=== PATIENT | male | born 1975 | race Two or more races ===

== ENCOUNTER 2024-06-29 21:18 | Emergency (ER) | payer BC, SELFPAY ==
[2024-06-29 21:21] VITALS: BMI 34.2
--- NOTE | 2024-06-29 21:22 | EKG_ITS ---
[facility] Test Date: 2024-06-29 Pat Name: JACK CRUZ Department: Room: - Gender: Male [employer]: : 1975 Requested By: Escobar Anaya Order Number: [id number] Reading MD: Escobar Anaya Measurements Intervals [place] Rate: 73 P: 28 SD: 203 QRS: 48 QRSD: 118 T: 59 QT: 373 QTc: 411 Interpretive Statements SINUS RHYTHM MODERATE INTRAVENTRICULAR CONDUCTION DELAY [110+ ms QRS DURATION] No previous ECG available for comparison /store/S0/[id number].pdf
[2024-06-29 21:29] VITALS: BP 124/80; PULSE 76; RESP 18; TEMP 36.6; O2SAT 98
[2024-06-29] MEDS: LIDOCAINE VISCOUS 2% 15 ML UDC PO (22:01)
[2024-06-29] MEDS: FAMOTIDINE 20 MG TABLET 40 MG PO (22:01)
[2024-06-29] MEDS: MG HYD/AL HYD/SIME (Maalox Reg) SUSP 30 ML UDC PO (22:01)
--- NOTE | 2024-06-29 22:16 | PD.EDCHEST ---
ED Chest Pain RME/HPI General Chief Complaint: Chest Pain Stated Complaint: CHEST PAIN Time Seen by Provider: 06/29/24 21:45 Arrival date/time: 06/29/24 21:18 48M with no significant PMH presents to ED with 1 month of intermittent burning CP, especially when he eats. Patient recently finished treatment for H. pylori, but still feels like he has symptoms. Patient states it's bad today. Limitations: no limitations Related Data Allergies Allergy/AdvReac Type Severity Reaction Status Date / Time No Known Allergies Allergy Verified 06/29/24 21:19 Review of Systems Review of Systems Systems Reviewed: All systems reviewed, normal except as documented Constitutional Constitutional: Reports system reviewed and no additional complaints, except as documented, Denies fever(s) and Denies headache(s) ENT Ears, Nose, Mouth, and Throat: Denies disequilibrium and Denies headache(s) Cardiovascular Cardiovascular: Reports system reviewed and no additional complaints, except as documented, Reports as per HPI, Reports chest pain and Denies dyspnea Respiratory Respiratory: Reports system reviewed and no additional complaints, except as documented, Denies cough and Denies dyspnea Gastrointestinal Gastrointestinal: Reports system reviewed and no additional complaints, except as documented, Denies abdominal pain, Denies nausea and Denies vomiting Neurologic Neurologic: Reports system reviewed and no additional complaints, except as documented, Denies confusion, Denies disequilibrium and Denies headache(s) Psychiatric Psychiatric: Denies confusion Past Medical History Social History SMOKING STATUS: Never smoker ED Exam General Limitations: Present no limitations General appearance: Present alert and in no apparent distress Head Head exam: Present atraumatic Eye Eye exam: Present normal appearance, PERRL and EOMI ENT ENT exam: Present normal exam, normal oropharynx and mucous membranes moist Neck Neck exam: Present normal inspection, full ROM and trachea midline Chest Chest inspection: Present normal inspection and symmetric chest wall rise Respiratory Respiratory exam: Present normal lung sounds bilaterally Cardiovascular Cardiovascular exam: Present regular rate, normal rhythm and normal heart sounds Abdominal Exam Abdominal exam: Present soft and normal bowel sounds Extremities Exam Extremities exam: Present normal inspection and full ROM Back Exam Back exam: Present normal inspection and full ROM Neurological Exam Neurological exam: Present alert, oriented X3 and CN II-XII intact Psychiatric Psychiatric exam: Present normal affect and normal mood Skin Skin exam: Present warm, dry, intact and normal color Course Quality Measures none Orders Category Date Time Status EKG (ED ONLY) *Do not use* NOW Care 06/29/24 21:22 Completed EKG (ED Only) Stat Exams 06/29/24 21:22 Draft Famotidine [Pepcid] Med 06/29/24 21:46 Discontinued 40 mg PO X1 ONE Lidocaine 2% Viscous [Xylocaine 2% Viscous] Med 06/29/24 21:46 Discontinued 15 ml PO X1 ONE Pantoprazole [Protonix] Med 06/29/24 23:32 Discontinued 40 mg PO X1 ONE mg Hyd/Al Hyd/Olivia Susp [Maalox Susp] Med 06/29/24 21:46 Discontinued 30 ml PO X1 ONE Vital Signs Vital signs: Vital Signs Temperature 97.9 F 06/29/24 21:29 Pulse Rate 76 06/29/24 21:29 Respiratory Rate 18 06/29/24 21:29 Blood Pressure 124/80 06/29/24 21:29 Pulse Oximetry (%) 98 06/29/24 21:29 Oxygen Delivery Method Room Air 06/29/24 21:29 O2 at 98% on RA and WNLs Chest Pain MDM Narrative MDM Narrative:: 48M with no significant PMH presents to ED with 1 month of intermittent burning CP, especially when he eats. Patient recently finished treatment for H. pylori, but still feels like he has symptoms. Patient states it's bad today. Physical exam reveals clear ENT and lungs. RRR. No ab tenderness. Patient is afebrile, calm, and alert. EKG is NSR. GI cocktail improved symptoms. [employer] given. Patient data External records reviewed:: None Clinical information provided by:: patient Social determinants that could affect healthcare access:: none Patient has the following chronic illnesses:: none How is presenting disease/condition affected by chronic disease/condition?: no chronic disease Evaluation data The following diagnostics were reviewed and interpreted by me:: EKG tracing(s) Lab and/or radiology exams considered but not ordered:: ordered Interpretation Summary: above Medications / Prescriptions Medications or Prescriptions considered but not ordered:: ordered Medication administrations:: Medication Administration History Discontinued Medications Al Hydrox/Mg Hydrox/Simethicone (Mg Hyd/Al Hyd/Olivia (Maalox Reg) Susp 30 Ml Udc) 30 ml PO X1 ONE Stop: 06/29/24 21:47 Last Admin: 06/29/24 22:01 Dose: 30 ml Documented By: EH Famotidine (Famotidine 20 Mg Tablet) 40 mg PO X1 ONE Stop: 06/29/24 21:47 Last Admin: 06/29/24 22:01 Dose: 40 mg Documented By: EH Lidocaine HCl (Lidocaine Viscous 2% 15 Ml Udc) 15 ml PO X1 ONE Stop: 06/29/24 21:47 Last Admin: 06/29/24 22:01 Dose: 15 ml Documented By: EH Pantoprazole Sodium (Pantoprazole 40 Mg Tablet) 40 mg PO X1 ONE Stop: 06/29/24 23:33 Last Admin: 06/29/24 23:52 Dose: 40 mg Documented By: OA above Consultations Consultation(s) initiated? (list below): No Diagnosis Chest Pain Differential Diagnosis: fracture of rib, pneumothorax, stable angina, unstable angina pectoris, atypical chest pain, st elevation myocardial infarction, costochondritis, chest pain, biliary colic and other (gastritis) Most likely diagnosis given after review of the tests above:: gastritis Admission Indicated Admission indicated?: not indicated Admission Request Was there a request for admission?: No Disposition Plan Disposition Plan: Discharge Discharge Attestation Discharge Attestation: The patient and all family members were given an opportunity to ask questions and understood the discharge instructions. Discharge instructions specifically effects, indications for sooner follow up or return to the emergency department, and the expected course of current diagnosis. Patient condition: Stable Discharge Plan Plan Patient Disposition: HOME (Self Care) Disposition Comment: Stable Prescriptions/Referrals Referrals: No Primary/Family,Physician [Primary Care Provider] - In 1 week Problem List Clinical Impression: Gastritis Patient/Caregiver Discharge Instructions Education Materials: ED Gastritis (Adult) Additional Instructions: Please follow-up with PCP within 24-48 hours and return immediately if symptoms worsen. May need different antibiotics for H. Pylori. Print Language: Upper Sorbian NICOLASA/BREANA Supervising Physician NICOLASA/BREANA Supervising Physician: Dr. Wilson
[2024-06-29] MEDS: PANTOPRAZOLE 40 MG TABLET PO (23:52)
== END 2024-06-30 00:38 | disposition home or self-care (01) ==
PROVIDERS: Emergency Provider Emergency Medicine
DX: K29.70 Gastritis, unspecified, without bleeding (principal); R07.9 Chest pain, unspecified
CPT/HCPCS: 93005; 99283; J3490; A9270